=== PATIENT | female | born 1980 | race Caucasian/White ===

== ENCOUNTER 2017-05-23 23:43 | Emergency (ER) | payer MEDICARE, MEDICAID ==
[~2017-05-23] VITALS: Ht 167.6 cm; Wt 56.7 kg
[~2017-05-23 23:43] MED LIST: KLONOPIN1 MG ORAL
[2017-05-23] MEDS ORDERED: NKM (23:54)
[2017-05-24 01:23] VITALS: BP 124/79
[2017-05-24 01:24] VITALS: BP 119/78
--- NOTE | 2017-05-24 07:46 | Emergency Room Report ---
History of Present Illness General Chief Complaint: Medical Clearance Source: Patient Present Illness HPI Patient is a 37-year-old female brought in for medical clearance. Patient had reportedly been using IV drugs. She reported having increased thirst. She denied any pain a cyst to her left leg. Patient states that she had prior history of borderline diabetes and needs a lot of sugary food. She denies any current locations of pain. Patient had prior history of IV drug abuse. 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 [place] Allergies: Coded Allergies: No Known Allergies (Unverified , 07/19/15) Patient History Past Medical History: see triage record Last Menstrual Period: unk Reviewed Nursing Documentation: PMH: Agreed, PSxH: Agreed Nursing Documentation-PMH Past Medical History: No Stated History Review of Systems All Other Systems: negative except mentioned in HPI Physical Exam Vital Signs Date Time Temp Pulse Resp B/P (MAP) Pulse Ox O2 Delivery O2 Flow Rate FiO2 05/23/17 23:51 98.2 112 16 119/78 96 Room Air General Appearance: well appearing, no apparent distress, alert, GCS 15 Head: normocephalic, atraumatic ENT: hearing grossly normal, normal voice Neck: full range of motion, supple Respiratory: no respiratory distress, speaking full sentences Cardiovascular #1: normal inspection, regular rate, rhythm Gastrointestinal: normal inspection, non tender, soft Musculoskeletal: normal inspection, no calf tenderness Neurologic: normal inspection, alert, oriented x3, normal gait Psychiatric: mood/affect normal Skin: no rash Medical Decision Making Diagnostic Impression: Primary Impression: Borderline diabetes ER Course Patient presented for increased thirst. Differential diagnosis included was not limited to diabetes, dehydration, sepsis. Laboratory testing was ordered for HIV and hepatitis. The patient noted have blood sugar of 130s . The patient is advised to follow up with primary care doctor in 1-2 days. Patient is advised to return if any worsening condition or if any changes in status that are concerning. Last Vital Signs Date Time Temp Pulse Resp B/P (MAP) Pulse Ox O2 Delivery O2 Flow Rate FiO2 05/24/17 01:24 98.2 16 119/78 96 Room Air 05/24/17 01:23 93 Status: improved Disposition: HOME, SELF-CARE Condition: Stable Departure Forms: Snf Clearance Patient Instructions: Diabetes Mellitus and Food Eugene Casiano May 24, 2017 07:46
== END 2017-05-24 01:25 | disposition home or self-care (01) ==
LOC: EMR 23:55
DX: R73.03 Prediabetes (principal)
CPT/HCPCS: 86703; 86705; 86709; 86803; 87340; 99282